=== PATIENT | female | born 1950 | race Caucasian/White ===

== ENCOUNTER 2016-10-24 10:11 | Emergency (ER) | payer OTHER ==
[~2016-10-24] VITALS: Ht 157.5 cm; Wt 75.0 kg
[~2016-10-24 10:11] MED LIST: ESOM1CAP6 PO; vit D PO
[2016-10-24 10:13] VITALS: BP 166/71; PULSE 74; RESP 18; TEMP 98.8; O2SAT 98
[2016-10-24] MEDS ORDERED: VITA100018 PO (10:28)
[2016-10-24 10:30] VITALS: BP 147/63; PULSE 72; RESP 16; O2SAT 98
[2016-10-24] MEDS ORDERED: MORPHINE SULFATE 4 MG/ML INJ IV PUSH ONE (10:45)
[2016-10-24] MEDS ORDERED: SODIUM CHLORIDE 0.9% FLUSH 10 ML FLUSH IVF PRN (10:45)
[2016-10-24] MEDS ORDERED: ASPIRIN 81 MG CHEW TAB PO ONE (10:45)
--- NOTE | 2016-10-24 10:56 | PD ---
HPI . Chest pain Chief Complaint: Chest Pain Time Seen by Provider: 10:41 Travel History International Travel<30 days: No Contact w/Intl Traveler<30days: No Traveled to known affect area: No History of Present Illness HPI This patient presents with a chief complaint of chest pain. She describes a sharp pain just left of her sternum. It was present on awakening this morning. It is rated 8/10. It is worse with deep respirations. It improved with a burp. Patient denies any associated shortness of breath. The patient reports a similar episode a couple days ago. She took an aspirin with resolution of her symptoms. Patient states that she is scheduled for resection of some skin cancers in just a couple of days. She states that they have told her to stop aspirin. Therefore, she did not take any aspirin today. [facility] [place] Past Medical History Anxiety: Yes Diabetes: No Diminished Hearing: No GERD: Yes Past Surgical History Tonsillectomy: Yes Other Surgery: Yes (BREAST REDUCTION-1985) Social History Alcohol Use: No Tobacco Use: No Substance Use: No Allergies-Medications (Allergen,Severity, Reaction): Coded Allergies: HMG-CoA Reductase Inhibitors (Verified Allergy, Severe, Muscle cramping severe, 10/24/16) Betadine (Verified Allergy, Mild, 10/24/16) Iodine (Verified Allergy, Mild, 10/24/16) Reported Meds & Prescriptions Reported Meds & Active Scripts Active Reported Vitamin D3 (Cholecalciferol) Unknown Strength Tab Unknown Dose PO DAILY Nexium 24 HR (Esomeprazole DR) 20 Mg Capdr 20 Mg PO DAILY Review of Systems Except as stated in HPI: all other systems reviewed are Neg General / Constitutional: No: Fever, Chills Cardiovascular: Positive: Chest Pain or Discomfort Respiratory: No: Shortness of Breath Gastrointestinal: No: Nausea, Vomiting Skin: Positive Lesions Neurologic: No: Weakness, Dizziness Physical Exam Narrative GENERAL: Awake and alert and in no acute distress. SKIN: Warm and dry. Suspicious lesion in her scalp. HEAD: Atraumatic. Normocephalic. EYES: Pupils equal and round. Extraocular movements are intact. ENT: No nasal bleeding or discharge. Mucous membranes pink and moist. NECK: Trachea midline. Neck is supple. CARDIOVASCULAR: Regular rate and rhythm. Heart sounds are normal. RESPIRATORY: No accessory muscle use. Lungs are clear with full air movement throughout. She does have tenderness to palpation of the left chest wall just lateral to the sternum. GASTROINTESTINAL: Abdomen soft, non-tender, nondistended. MUSCULOSKELETAL: No obvious deformities. No edema. NEUROLOGICAL: Awake and alert. No obvious cranial nerve deficits. Motor grossly within normal limits. Normal speech. PSYCHIATRIC: Appropriate mood and affect; insight and judgment normal. Data Data Last Documented VS Vital Signs Date Time Temp Pulse Resp B/P Pulse Ox O2 Delivery O2 Flow Rate FiO2 10/24/16 11:16 16 98 Room Air 10/24/16 10:13 98.8 74 166/71 Orders Electrocardiogram (10/24/16 ) Basic Metabolic Panel (Bmp) (10/24/16 10:41) Ckmb (Isoenzyme) Profile (10/24/16 10:41) Complete Blood Count With Diff (10/24/16 10:41) D-Dimer (10/24/16 10:41) Magnesium (Mg) (10/24/16 10:41) Prothrombin Time / Inr (Pt) (10/24/16 10:41) Act Partial Throm Time (Ptt) (10/24/16 10:41) Troponin I (10/24/16 10:41) Chest, Single Ap (10/24/16 10:41) Ecg Monitoring (10/24/16 10:41) Iv Access Insert/Monitor (10/24/16 10:41) Oximetry (10/24/16 10:41) Aspirin Chew (Aspirin Chew) (10/24/16 10:45) Morphine Inj (Morphine Inj) (10/24/16 10:45) Sodium Chloride 0.9% Flush (Ns Flush) (10/24/16 10:45) Morphine Inj (Morphine Inj) (10/24/16 11:15) Labs Laboratory Tests Test 10/24/16 10:51 White Blood Count 7.5 TH/MM3 Red Blood Count 5.11 MIL/MM3 Hemoglobin 14.2 GM/DL Hematocrit 43.4 % Mean Corpuscular Volume 84.8 FL Mean Corpuscular Hemoglobin 27.8 PG Mean Corpuscular Hemoglobin 32.8 % Concent Red Cell Distribution Width 14.0 % Platelet Count 217 TH/MM3 Mean Platelet Volume 9.8 FL Neutrophils (%) (Auto) 62.7 % Lymphocytes (%) (Auto) 26.3 % Monocytes (%) (Auto) 7.9 % Eosinophils (%) (Auto) 2.4 % Basophils (%) (Auto) 0.7 % Neutrophils # (Auto) 4.7 TH/MM3 Lymphocytes # (Auto) 2.0 TH/MM3 Monocytes # (Auto) 0.6 TH/MM3 Eosinophils # (Auto) 0.2 TH/MM3 Basophils # (Auto) 0.1 TH/MM3 CBC Comment DIFF FINAL Differential Comment Prothrombin Time 10.2 SEC Prothromb Time International 0.9 RATIO Ratio Activated Partial 27.1 SEC Thromboplast Time D-Dimer Quantitative (PE/DVT) 0.44 MG/L FEU Sodium Level 138 MEQ/L Potassium Level 4.1 MEQ/L Chloride Level 105 MEQ/L Carbon Dioxide Level 25.9 MEQ/L Anion Gap 7 MEQ/L Blood Urea Nitrogen 16 MG/DL Creatinine 0.83 MG/DL Estimat Glomerular Filtration 69 ML/MIN Rate Random Glucose 74 MG/DL Calcium Level 9.1 MG/DL Magnesium Level 2.1 MG/DL Total Creatine Kinase 67 U/L Troponin I LESS THAN 0.02 NG/ML MDM Medical Decision Making Medical Screen Exam Complete: Yes Emergency Medical Condition: Yes Interpretation(s) Her EKG is completely normal. Differential Diagnosis Differential diagnosis of chest pain includes but is not limited to musculoskeletal pain, pulmonary embolism, acute coronary syndrome, pneumonia, pleurisy Narrative Course This patient presents with the chief complaint of sharp, left-sided chest pain. Chest pain workup has been initiated. I have ordered a dose of aspirin, 81 mg. I have also ordered some morphine. The patient refused morphine. CBC & BMP Diagram 10/24/16 10:51 Cardiac enzymes are negative. D-dimer is normal at 0.44. I have discussed disposition with this patient. I have recommended admission to the [facility] [place]NOTE 3] for serial enzymes and stress test. The patient states that she does not want to run up the hospital bill. She reports financial difficulty. She states that she is very worried about how she is pointing to pain for her upcoming surgery. She further feels that her chest pain is probably stress related. Diagnosis Primary Impression: Chest pain Qualified Code: R07.9 - Chest pain, unspecified type Patient Instructions: Chest Pain (DC), General Instructions Additional Instructions: Call your surgeon on Thursday to let him know that you have had aspirin. Disposition: DISCHARGE HOME Condition: Stable Angella Sotomayor MD Oct 24, 2016 10:56
[2016-10-24 11:00] LABS: AUTOMATED NEUTROPHIL # 4.7 TH/MM3 (1.8-7.7); BASOPHIL # 0.1 TH/MM3 (0-0.2); BASOPHIL % 0.7 % (0.0-2.0); EOSINOPHIL # 0.2 TH/MM3 (0-0.4); EOSINOPHIL % 2.4 % (0.0-4.0); HEMATOCRIT 43.4 % (35.0-46.0); HEMO FLAGS DIFF FINAL; LYMPH % 26.3 % (9.0-44.0); MEAN CELL VOLUME 84.8 FL (80.0-100.0); MEAN CORPUSCULAR HEMOGLOBIN 27.8 PG (27.0-34.0); MEAN CORPUSCULAR HGB CONC 32.8 % (32.0-36.0); MONO % 7.9 % (0.0-8.0); NEUT % 62.7 % (16.0-70.0); PLATELET COUNT 217 TH/MM3 (150-450); RED BLOOD COUNT 5.11 MIL/MM3 (4.00-5.30); WHITE BLOOD COUNT 7.5 TH/MM3 (4.0-11.0)
[2016-10-24] MEDS ORDERED: MORPHINE SULFATE 8 MG/ML INJ IV PUSH ONE (11:15)
[2016-10-24 11:16] VITALS: RESP 16; O2SAT 98
[2016-10-24 11:19] LABS: APTT (PATIENT) 27.1 SEC (24.3-30.1); INTERNATIONAL NORMALIZED RATIO 0.9 RATIO; PROTHROMBIN TIME - PATIENT 10.2 SEC (9.8-11.6)
[2016-10-24 11:22] LABS: ANION GAP 7 MEQ/L (5-15); BICARBONATE 25.9 MEQ/L (21.0-32.0); BLOOD UREA NITROGEN 16 MG/DL (7-18); CHLORIDE 105 MEQ/L (98-107); CREATINE KINASE 67 U/L (26-192); GLOMERULAR FILTRATION RATE 69 ML/MIN (>89); MAGNESIUM 2.1 MG/DL (1.5-2.5); POTASSIUM 4.1 MEQ/L (3.5-5.1); SODIUM (NA) 138 MEQ/L (136-145)
[2016-10-24 11:30] VITALS: BP 164/73; PULSE 70; RESP 16; O2SAT 97
--- NOTE | 2016-10-24 12:38 | RADRPT ---
EXAM DATE/TIME: 10/24/2016 10:51 [facility] COMPARISON: No previous studies available for comparison. INDICATIONS : Pain with breathing. MEDICAL HISTORY : None. SURGICAL HISTORY : None. ENCOUNTER: Initial ACUITY: 1 day PAIN SCORE: 7/10 LOCATION: Left chest FINDINGS: The lungs are clear without infiltrate, nodule, or mass. There is no appreciable pleural effusion fo r technique. Heart and mediastinum are unremarkable. CONCLUSION: No acute cardiopulmonary disease. Peter Burton MD on October 24, 2016 at 12:35 Board Certified Radiologist. This report was verified electronically.
--- NOTE | 2016-10-25 10:40 | EKG ---
Date Performed: 10/24/2016 Time Performed: 10:23:08 PTAGE: 66 years EKG: Sinus rhythm NORMAL ECG PREVIOUS TRACING : 02/03/1999 05.52 DOCTOR: Agustín Leo Interpretating Date/Time 10/25/2016 10:37:36
== END 2016-10-24 12:03 | disposition home or self-care (01) ==
LOC: NEPC 10:11
DX: R07.9 Chest pain, unspecified (principal); E11.9 Type 2 diabetes mellitus without complications; Z79.899 Other long term (current) drug therapy; Z86.59 Personal history of other mental and behavioral disorders; Z87.19 Personal history of other diseases of the digestive system
CPT/HCPCS: 71010; 80048; 82550; 83735; 84484; 85025; 85379; 85610; 85730; 93005

== ENCOUNTER → 2016-10-28 | Day surgery (SDC) | payer OTHER ==
[~2016-10-28] MED LIST changes: +EPINEPHrine HCL (1:1000) 1 MG/ML VIAL OTHER ONE; +LACTATED RINGER'S 1000 ML INJ 1,000 ML ONE; +LIDOCAINE 1%/EPINEPHrine 1:100,000 SOLN 20 ML VIAL ONE; +MIDAZOLAM HCL 2 MG/2 ML VIAL ONE; +MINERAL OIL 10 ML VIAL ONE; +ONDANSETRON HCL 4 MG/2 ML VIAL IV PUSH ONE; +PROPOFOL 200 MG/20 ML AMP IV ONE; +SODIUM BICARBONATE 8.4% INJ 50 ML ONE; +VITA100018 PO; +ceFAZolin 2 GM PREMIX 50 ML ONE; -vit D PO
--- NOTE | 2016-10-28 12:35 | MP ---
cc: JOHN MARADIAGA M.D. DATE OF SURGERY 10/27/2016 PREOPERATIVE DIAGNOSES Basal cell carcinoma involving the vertex scalp and right posterior upper neck in the mastoid area. POSTOPERATIVE DIAGNOSIS Basal cell carcinoma involving the vertex scalp and right posterior upper neck in the mastoid area. OPERATION 1. Excision and frozen section vertex basal cell carcinoma 5 x 4 cm excision frozen section and split-thickness skin graft from the left thigh. 2. Excision frozen section right neck basal cell carcinoma 2.5 x 1.5 cm and primary closure. SURGEON Dr. Maradiaga ANESTHESIA General INDICATIONS This is a 66-year-old female with the above two areas of biopsy proven basal cell carcinoma. She underwent a detailed explanation of the excision frozen section process to get clear margins, reconstruction on the scalp with skin graft. She understands the possibility that the graft may or may not take and that there will be no hair growth in the graft. The one behind the neck can be primarily closed. She is willing to go ahead with the surgery and understands the possibility of bleeding, infection, chronic pain, etc. and possible multiple surgeries. PROCEDURE The patient was brought to the operating room, was given supine position. Anesthesia was started. A prep and drape was done. IV antibiotic had been given. The area around the lesion was shaved for approximately 3 mm outside the visible border. Lidocaine 1% with epi and additional 1 cc of epinephrine diluted in approximately 100 cc of saline was used. The scalp was tumesced surrounding the tumor itself and also in the base of the soft tissues to allow hydrodissection. The same solution was also used on the right upper neck mastoid area. The specimens were excised on the scalp. The last layer of the galea and the periosteum was left alone. The one on the neck was taken down to the underlying fascia as well. Both were suture marked for orientation and sent for frozen section. Hemostasis was excellent. Only a small amount of cautery was needed to address the bleeding on the scalp edges. A split-thickness skin graft was harvested with a dermatome from the left thigh. It was pie-crusted and applied to the scalp defect with myrna and a sponge. The defect behind the right ear was closed directly with 3-0 Vicryl sutures. The frozen section report received and indicated basal cells with clear margins. The excess graft was returned to the left thigh donor site and stapled in place. Sterile dressing was applied to all areas. The patient remained stable. Intraoperative blood loss less than 5 cc. No complications. MD ANTOINETTE Mustafa/TERI /9:47 AM /12:34 PM
== END | disposition home or self-care (01) ==
LOC: ESDC 06:46
PROVIDERS: ATTEND Plastic Surgery
DX: C44.41 Basal cell carcinoma of skin of scalp and neck (principal)
CPT/HCPCS: 00300; 11623; 11626; 15120; 88305; 88331; 88332; J0171; J0690; J2250; J2405; J3010; J7120